=== PATIENT | female | born 1970 | race Two or more races ===

== ENCOUNTER 2024-06-08 12:26 | Emergency (ER) | payer MEDICAID, SELFPAY ==
[2024-06-08 12:38] VITALS: BP 143/95; PULSE 86; RESP 16; TEMP 36.6; O2SAT 97; BMI 41.3
--- NOTE | 2024-06-08 12:59 | XR_ITS ---
Examination: CT abdomen with intravenous contrast CT pelvis with intravenous contrast 2-D coronal reconstructions 2-D sagittal reconstructions Date and time of exam:June 08, 2024 1548 hours INDICATIONS: Left-sided flank pain with fever today, history recent ureteral stent placement and lithotripsy. CTDI: vol (mGy) 17.1 DLP: (mGycm) 1057 Technique: Multiple axial sections of the abdomen and pelvis have been obtained. 64 slice high-resolution scanner used. 3 mm axial sections have been obtained, post intravenous injection 60 cc [id number] 2-D sagittal, coronal reconstructions obtained. Low dose protocols were performed. One or more of the following dose reduction techniques were used; automated exposure control, adjustment of the mA and/or KV according to patient size, use of iterative reconstruction technique. Findings: No focal liver or splenic lesion No gallstones No extrahepatic biliary tract dilatation No pancreatic mass Normal adrenal glands Severe parenchymal scarring right kidney moderate parenchymal scarring left kidney Multiple subcentimeter right renal calculi with moderate right hydronephrosis No ureteral stent is identified No definite ureteral calculi Normal appendix Colonic diverticulosis, no diverticulitis No bladder mass or bladder calculi No pelvic mass IMPRESSION: Severe parenchymal scarring right kidney with multiple subcentimeter right renal calculi Moderate right hydronephrosis, coronal image 92 suspicious for 2 mm right ureteral calculus in the mid right ureter IMPRESSION: Moderate right hydronephrosis, suspicious for 2 mm mid right ureteral calculus
--- NOTE | 2024-06-08 13:02 | EDNOTE_ITS ---
ED Abdominal Pain RME/HPI General Chief Complaint: Abdominal Pain Stated complaint: ABD PAIN RAD TO BACK, N/V, FEVER, CHILLS Time seen by provider: 06/08/24 12:55 Arrival date/time: 06/08/24 12:26 This is a 53-year-old female who presents to the emergency department with a 3- day history of left-sided abdominal pain radiating to flank pain. Reports associated fever and chills. Does report that a month ago she had diverticulitis and took antibiotics and resolving her pain. On May 19 she also had a procedure done at [facility] in which she had a stent removed and lithotripsy. Reports was doing well for the last 3 weeks however the last 4 days she began with left-sided abdominal pain fever and chills. Source: patient Limitations: no limitations Related Data Home Medications ?Medication ?Instructions ?Recorded ?Confirmed estradiol 0.025 mg/24 hr topical 02/02/24 02/02/24 semiweekly transdermal patch potassium citrate 10 mEq (1,080 1,080 mg PO QPC 02/02/24 02/02/24 mg) tablet,extended release Previous Rx's ?Medication ?Instructions ?Recorded meloxicam 7.5 mg tablet 7.5 mg PO QDAY #45 tabs 02/02/24 ibuprofen 800 mg tablet (IBU) 800 mg PO Q8H #20 tabs 06/08/24 tamsulosin 0.4 mg capsule (Flomax) 0.4 mg PO QDAY #5 caps 06/08/24 Allergies Allergy/AdvReac Type Severity Reaction Status Date / Time No Known Allergies Allergy Verified 02/02/24 13:14 Review of Systems Review of Systems Systems Reviewed: All systems reviewed, normal except as documented Narrative Review of Systems: Gen: ?fever, no chills, no weight loss EYES: No discharge, no visual changes, no pain HEENT: No ear pain, no congestion, no sore throat PULM: No shortness of breath, no cough, no congestion CV: No chest pain, no dyspnea on exertion, no palpitations GI: No nausea, no vomiting, no diarrhea, left-sided abdominal pain pain, no constipation : No frequency, no urgency,? no dysuria Musc/skel: No joint pain, no back pain Skin: No rash? ED Exam General Limitations: Present no limitations General appearance: Present alert and in no apparent distress Head Head exam: Present atraumatic Eye Eye exam: Present normal appearance, PERRL and EOMI ENT ENT exam: Present normal exam, normal oropharynx and mucous membranes moist Neck Neck exam: Present normal inspection, full ROM and trachea midline Chest Chest inspection: Present normal inspection and symmetric chest wall rise Respiratory Respiratory exam: Present normal lung sounds bilaterally Cardiovascular Cardiovascular exam: Present regular rate, normal rhythm, normal heart sounds, +S1 and +S2 Abdominal Exam Abdominal exam: Present soft, tenderness (Left quadrant lower abdominal pain tenderness) and normal bowel sounds; Absent guarding or rebound Abdominal tenderness: Present LUQ, LLQ and mild Extremities Exam Extremities exam: Present normal inspection and full ROM Back Exam Back exam: Present normal inspection and full ROM Neurological Exam Neurological exam: Present alert, oriented X3 and CN II-XII intact Psychiatric Psychiatric exam: Present normal affect and normal mood Skin Skin exam: Present warm, dry, intact and normal color Course Quality Measures none Orders Category Date Time Status CT Screening NOW Care 06/08/24 12:[address] abdomen pelvis w con Stat Exams 06/08/24 12:59 Completed Blood Culture (Lab) Stat Lab 06/08/24 13:30 Results CBC Stat Lab 06/08/24 13:25 Completed Comprehensive Metabolic Panel Stat Lab 06/08/24 13:25 Completed HCG Qualitative,Urine Stat Lab 06/08/24 13:45 Completed Lactate (Lactic Acid) Stat Lab 06/08/24 13:25 Completed Lipase Stat Lab 06/08/24 13:25 Completed Procalcitonin Stat Lab 06/08/24 13:25 Completed Urinalysis Stat Lab 06/08/24 13:45 Completed Morphine Inj Med 06/08/24 16:24 Discontinued 4 mg IVP X1 ONE Ondansetron Inj [Zofran Inj] Med 06/08/24 16:24 Discontinued 4 mg IV X1 ONE Ondansetron Odt [Zofran Odt] Med 06/08/24 15:45 Discontinued 4 mg PO X1 ONE Tamsulosin HCl [Flomax] Med 06/08/24 17:32 Discontinued 0.4 mg PO X1 ONE Vital Signs Vital signs: Vital Signs Temperature 97.8 F 06/08/24 12:38 Pulse Rate 86 06/08/24 12:38 Respiratory Rate 16 06/08/24 12:38 Blood Pressure 143/95 H 06/08/24 12:38 Pulse Oximetry (%) 97 06/08/24 12:38 Oxygen Delivery Method Room Air 06/08/24 12:38 Abdominal Pain MDM MDM Narrative MDM Narrative:: This is a 53-year-old female who presents to the emergency department with a 3- day history of left-sided abdominal pain radiating to flank pain. Reports associated fever and chills. Does report that a month ago she had diverticulitis and took antibiotics and resolving her pain. On May 19 she also had a procedure done at [facility] in which she had a stent removed and lithotripsy. Reports was doing well for the last 3 weeks however the last 4 days she began with left-sided abdominal pain fever and chills. IVF< IV meds given, with flomax. Pain relieved. Labs unremarkable, neg Leukocytosis, no shift, neg lactic and procal, Clean U/A. Ct demonstrates small 2mm stone mild hydro. Hx of chronic renal calculi. IS being follow at [facility] for Urology. Will dc home with flomax,, pain meds no indication for admission. Patient data External records reviewed:: [facility] previous records Clinical information provided by:: patient Social determinants that could affect healthcare access:: none Patient has the following chronic illnesses:: no How is presenting disease/condition affected by chronic disease/condition?: no chronic disease Evaluation data The following diagnostics were reviewed and interpreted by me:: lab results and radiology exam(s) Lab and/or radiology exams considered but not ordered:: yes Interpretation Summary: Examination: CT abdomen with intravenous contrast CT pelvis with intravenous contrast 2-D coronal reconstructions 2-D sagittal reconstructions Date and time of exam:June 08, 2024 1548 hours INDICATIONS: Left-sided flank pain with fever today, history recent ureteral stent placement and lithotripsy. CTDI: vol (mGy) 17.1 DLP: (mGycm) 1057 Technique: Multiple axial sections of the abdomen and pelvis have been obtained. 64 slice high-resolution scanner used. 3 mm axial sections have been obtained, post intravenous injection 60 cc [id number] 2-D sagittal, coronal reconstructions obtained. Low dose protocols were performed. One or more of the following dose reduction techniques were used; automated exposure control, adjustment of the mA and/or KV according to patient size, use of iterative reconstruction technique. Findings: No focal liver or splenic lesion No gallstones No extrahepatic biliary tract dilatation No pancreatic mass Normal adrenal glands Severe parenchymal scarring right kidney moderate parenchymal scarring left kidney Multiple subcentimeter right renal calculi with moderate right hydronephrosis No ureteral stent is identified No definite ureteral calculi Normal appendix Colonic diverticulosis, no diverticulitis No bladder mass or bladder calculi No pelvic mass IMPRESSION: Severe parenchymal scarring right kidney with multiple subcentimeter right renal calculi Moderate right hydronephrosis, coronal image 92 suspicious for 2 mm right ureteral calculus in the mid right ureter IMPRESSION: Moderate right hydronephrosis, suspicious for 2 mm mid right ureteral calculus Medications / Prescriptions Medications or Prescriptions considered but not ordered:: no Medication administrations:: Medication Administration History Discontinued Medications Morphine Sulfate (Morphine Sulf Inj 10 Mg/Ml Vial) 4 mg IVP X1 ONE Stop: 06/08/24 16:25 Last Admin: 06/08/24 16:37 Dose: 4 mg Documented By: RAGHAV Ondansetron HCl (Ondansetron Odt 4 Mg Tabrap) 4 mg PO X1 ONE; Protocol Stop: 06/08/24 15:46 Last Admin: 06/08/24 16:39 Dose: Not Given Documented By: RAGHAV Non-Admin Reason: Discontinued Ondansetron HCl (Ondansetron Inj 2 Mg/Ml Inj 2 Ml) 4 mg IV X1 ONE; Protocol Stop: 06/08/24 16:25 Last Admin: 06/08/24 16:39 Dose: 4 mg Documented By: RAGHAV Tamsulosin HCl (Tamsulosin Hcl 0.4 Mg Capsule) 0.4 mg PO X1 ONE Stop: 06/08/24 17:33 Last Admin: 06/08/24 19:04 Dose: 0.4 mg Documented By: RAGHAV yes Consultations Consultation(s) initiated? (list below): No Diagnosis Differential diagnosis abdominal pain: abdominal pain, acute appendicitis, calculus of kidney, constipation, gastroenteritis, pancreatitis, small bowel obstruction and other Most likely diagnosis given after review of the tests above:: Renal colic Admission Indicated Admission indicated?: not indicated Admission Request Was there a request for admission?: No Disposition Plan Disposition Plan: Discharge Discharge Attestation Discharge Attestation: The patient and all family members were given an opportunity to ask questions and understood the discharge instructions. Discharge instructions specifically effects, indications for sooner follow up or return to the emergency department, and the expected course of current diagnosis. Patient condition: Stable Discharge Plan Plan Patient Disposition: HOME (Self Care) Patient condition on transfer: Stable Prescriptions/Referrals Prescriptions/Med Rec: New tamsulosin [Flomax] 0.4 mg capsule 0.4 mg PO QDAY Qty: 5 0RF ibuprofen [IBU] 800 mg tablet 800 mg PO Q8H Qty: 20 0RF No Action estradiol 0.025 mg/24 hr patch semiweekly topical potassium citrate 10 mEq (1,080 mg) tablet extended release 1,080 mg PO QPC meloxicam 7.5 mg tablet 7.5 mg PO QDAY Qty: 45 3RF Referrals: Mayur Burgess MD [Primary Care Provider] - In 1 week Problem List Clinical Impression: Abdominal pain, Kidney stone Patient/Caregiver Discharge Instructions Education Materials: Abdominal Pain, ED Kidney Stone w/ Colic Additional Instructions: Flores tomograf?a computarizada demuestra diverticulosis sin infecci?n. La ecograf?a demuestra un lauro?o c?lculo de 2 mm. Jasen laboratorios son normales, no hay infecci?n en la vejiga, el an?lisis de orina es normal. Necesitar? thomas ye de seguimiento con flores m?dico de atenci?n primaria o cl?hernando en 2 d?as para recibir atenci?n de seguimiento. [place] jasen analg?sicos seg?n las indicaciones. Regrese al departamento de emergencias si hay alg?n empeoramiento de los s?ntomas o cambios en la condici?n. Your CT demonstrates diverticulosis no infection. Ultrasound demonstrates a small 2 mm stone Your labs are normal no infection in the bladder, urinalysis is normal. You will need to follow-up with your primary doctor or clinic in 2 days for follow-up care. Take your pain medication as directed. Return to the emergency department if there is any worsening symptoms or change in condition. Print Language: Romansh Stand Alone Forms: Mery Award Info., Patient Portal Info Letter PA/LUIS Supervising Physician PA/LUIS Supervising Physician: Dr. JAY
[2024-06-08 13:38] LABS: Lactate (Lactic Acid) 1.1 mMol/L (0.4-2.0)
[2024-06-08 13:39] LABS: Basophils % (Auto) 1 % (0-2.5); Eosinophils # (Auto) 0.1 Thou/mm3 (0.0-0.5); Eosinophils % (Auto) 1 % (0-10); Hematocrit 37.2 % (36.0-46.0); Immature Granulocytes % (Auto) 0 % (0-0); Immature Granulocytes Auto 0.01 Thou/mm3 (0.00-0.00); Lymphocytes # (Auto) 2.6 Thou/mm3 (1.0-4.8); Lymphocytes % (Auto) 36 % (10-50); Mean Corpuscular HGB Conc 32.3 g/dl (31.0-37.0); Mean Corpuscular Hemoglobin 26.9 pg (25.0-35.0); Mean Corpuscular Volume 83 fL (80-100); Monocytes # (Auto) 0.4 Thou/mm3 (0.0-0.8); Monocytes % (Auto) 5 % (0-12); Neutrophils # (Auto) 4.1 Thou/mm3 (1.8-7.7); Neutrophils % (Auto) 57 % (37-80); Nucleated Red Blood Cell % 0 /100 WBC (0); Platelet Count 267 Thou/mm3 (140-440); RDW Standard Deviation 42.9 fL (36.4-46.3); Red Blood Count 4.46 Miln/mm3 (4.00-5.20); White Blood Count 7.2 Thou/mm3 (3.6-11.0)
[2024-06-08 14:12] LABS: Alanine Aminotransferase 16 U/L (10-49); Albumin, Serum 4.7 gm/dL (3.5-5.0); Albumin/Globulin Ratio 1.6 (1.2-2.2); Alkaline Phosphatase 84 U/L (46-116); Anion Gap 7 (7-16); Aspartate Amino Transferase 14 U/L (0-34); BUN/Creatinine Ratio 20 Ratio (12-20); Bilirubin,Total 0.3 mg/dL (0.3-1.2); Blood Urea Nitrogen 14 mg/dL (9-23); Calcium 9.8 mg/dL (8.3-10.6); Calcium (Corrected) 9.8 mg/dL (8.5-10.1); Chloride 106 mMol/L (98-107); Creatinine (Component) 0.7 mg/dL (0.6-1.3); Estimated Creatinine Clearance 110.6 mL/min (>60); Glucose 92 mg/dL (74-106); Lipase 34 U/L (12-53); Osmolality,Calculated 278 (275-295); Potassium 3.7 mMol/L (3.4-5.1); Procalcitonin < 0.04 ng/ml (0.0-0.49); Sodium 139 mMol/L (136-145); Total Protein 7.7 gm/dL (5.7-8.2); eGFR > 60 See Note
[2024-06-08 14:45] LABS: Collection Type, Urine Clean Catch
[2024-06-08 14:55] LABS: Bilirubin,Urine Negative (Negative); Blood,Urine Negative (Negative); Clarity,Urine Clear (Clear/Hazy); Color,Urine Lt-Yellow (Lt Yel-Yel); Glucose, Urine Negative (Negative); Ketones,Urine Negative (Negative); Leukocyte Esterase,Urine Negative (Negative); Nitrite,Urine Negative (Negative); PH,Urine 6.5 (5.0-7.0); Protein,Urine Negative (Neg - Trace); RBC,Urine 2 /hpf (0-3); Specific Gravity,Urine 1.022 (1.001-1.035); Squamous Epithelial Cell,Urine < 1 /hpf (0-5); Urobilinogen,Urine Negative mg/dL (0.0-1.0); WBC,Urine 2 /hpf (0-5)
[2024-06-08 14:58] LABS: HCG Qualitative,Urine Negative
[2024-06-08] MEDS: MORPHINE SULF INJ 10 MG/ML VIAL 4 MG IVP (16:37)
[2024-06-08] MEDS: ONDANSETRON INJ 2 MG/ML INJ 2 ML 4 MG IV (16:39)
[2024-06-08] MEDS: TAMSULOSIN HCL 0.4 MG CAPSULE PO (19:04)
== END 2024-06-08 19:09 | disposition home or self-care (01) ==
PROVIDERS: Nurse Practitioner Primary Care; Emergency Provider Emergency Medicine; PCP Family Medicine
DX: N13.2 Hydronephrosis with renal and ureteral calculous obstruction (principal)
CPT/HCPCS: 36415; 74177; 80053; 81001; 81025; 83605; 83690; 84145; 85025; 87040; 96374; 99285; A4649; J2270; J2405; Q9967; A9270